=== PATIENT | female | born 1985 | race Hispanic/Latino ===

== ENCOUNTER 2016-04-03 22:12 | Emergency (ER) | payer MEDICAID ==
[~2016-04-03] VITALS: Ht 157.5 cm; Wt 68.2 kg
[2016-04-03 22:24] VITALS: BP 137/90; PULSE 92; RESP 16; O2SAT 100
--- NOTE | 2016-04-03 22:47 | ED.REPORT ---
HPI-General Illness Date of Service Apr 03, 2016 ED Provider: Dawson Barrios MD Pt is a 30 year old female with a history of substance abuse who presents to the ED with a desire to obtain a prescription for Suboxone. She reports that she has never been on a sobering program before, and has only ever Suboxone that she has purchased on her own on the street. Pt reports that she last used IV heroin this morning. She denies any abscesses, or any other complaints. Nursing Notes Stated Complaint: SUBSTANCE ABUSE Chief Complaint: Substance Abuse Nursing Notes Reviewed: Yes Allergies: Coded Allergies: No Known Allergies (Unverified , 04/03/16) Scheduled Buprenorphine HCl/Naloxone HCl (Suboxone 8 mg-2 mg Sl Film) 1 Each Film 1.5 EACH SL DAILY General Time Seen by MD: 22:42 Chief Complaint Other (Rx request) Hx Obtained From: Patient Arrived By: Walk-in Sudden in Onset?: No Severity: Current: No pain currently Severity: Maximum: No pain Similar Sx Previous: Yes Past Medical History Past Medical History IV substance abuse Smoking History Unknown if Ever Smoker Social History Drug Use: IV drugs Ambulatory Status Independent Review of Systems Full Review of Systems Constitutional: Denies: Chills, Fever, Malaise, Weakness - generalized Respiratory: Denies: Non-productive cough, Shortness of breath, Wheezing Cardiovascular: Denies: Chest pain, Syncope GI: Denies: Abdominal pain, Constipation, Diarrhea, Nausea, Vomiting Female: Denies: Dysuria, Flank pain Musculoskeletal: Denies: Back pain, Neck pain Skin: Denies Diaphoresis Neurologic: Denies: Change LOC, Headache, Syncope Complete sys rev & neg: except as marked. Physical Exam Vital Signs Vital Signs Date Time Temp Pulse Resp B/P Pulse Ox O2 Delivery O2 Flow Rate FiO2 04/03/16 22:24 36.2 92 16 137/90 100 Room Air Initial VS: Reviewed, Vital signs abnormal General/Constitutional: Well-developed, Well-nourished Head / Eyes: Atraumatic, Normocephalic, PERRL ENT: Mucous membranes moist, Conjunctiva normal, No scleral icterus Neck: Supple, Non-tender, Full range of motion Respiratory: Breath sounds normal, Clear to auscultation, No respiratory distress Skin: Warm, Dry, No cyanosis Neurologic: Alert, Oriented, Nonfocal Re-Eval/Medical Decision Med Decision/Clinical Course 30-year-old female with opioid dependence (heroin). She desires detox and Suboxone maintenance. She was given a 5 day prescription of Suboxone with instructions for expedited follow-up with me at [facility]. Source of Hx: Old records Time of Eval: 00:20 Re-Evaluation/Progress Note: Pt is rechecked and informed of her diagnosis and the plan to discharge her at this time. She understands and agrees, all questions are addressed. Counseled Regarding: Diagnosis, Need for follow-up, When/why to return to ED Discharge & Departure Primary Impression: Opioid dependence Substance use status: uncomplicated Qualified Code: F11.20 - Opioid dependence, uncomplicated Disposition: Home Discharge Condition All VS Reviewed: Yes Condition: Stable Patient Instructions: Buprenorphine/Naloxone (By mouth) Additional Instructions: Start Suboxone in the morning 24 hours after your last heroin use. Suboxone 8/ 2 film, 1-1/2 sublingual daily, #8 prescription written. Apply the mupirocin ( Bactroban) twice daily to the sores. Do not use meth or heroin. Call Wednesday to schedule an appointment to see me at [facility] on Wednesday or Wednesday. Referrals: BRENDA Laureano Attestation Portions of this note were transcribed by Blanche Ayers. I, Dr. Barrios personally performed the history, physical exam and medical decision-making; I reviewed and confirmed the accuracy of the information in the transcribed note. Signed by: Sridevi Carrero, 04/03/2016 [id number] copies to: Dawson Martin MD Apr 03, 2016 22:47 BOBBY AYERS Apr 03, 2016 23:36
[2016-04-03] MEDS ORDERED: Mupirocin 2% 22 Gm Ointment TOPICAL ONE (23:50)
[2016-04-03] MEDS ORDERED: BUPR1FIL3 SL (23:59)
== END 2016-04-04 00:07 | disposition home or self-care (01) ==
LOC: SED 22:12
DX: F11.20 Opioid dependence, uncomplicated (principal)

== ENCOUNTER 2016-05-29 23:09 | Emergency (ER) | payer MEDICAID ==
[~2016-05-29 23:09] MED LIST: BUPR1FIL3 SL
[2016-05-30] MEDS ORDERED: BUPR1FIL3 SL (21:17)
== END 2016-05-29 23:22 | disposition left against medical advice (07) ==
LOC: SED 23:09
DX: F19.10 Other psychoactive substance abuse, uncomplicated (principal); Z53.21 Procedure and treatment not carried out due to patient leaving prior to being seen by health care provider

== ENCOUNTER 2016-05-30 19:54 | Emergency (ER) | payer MEDICAID ==
[~2016-05-30] VITALS: Ht 157.5 cm; Wt 63.6 kg
[2016-05-30 20:00] VITALS: BP 132/87; PULSE 88; RESP 16; O2SAT 100
--- NOTE | 2016-05-30 20:33 | ED.REPORT ---
HPI-General Illness Date of Service May 30, 2016 ED Provider: Dawson Barrios MD A 30 year old female with a history of IV heroin abuse and methamphetamine presents to the ED requesting Suboxone treatment. The pt last used at 00:00 last night. She reports that there are no openings at [facility] this week but is interested in detox. The pt was in treatment three months ago and has been trying to get clean for some time. Nursing Notes Stated Complaint: OPIATE WITHDRAWAL Chief Complaint: Substance Abuse Nursing Notes Reviewed: Yes Allergies: Coded Allergies: No Known Allergies (Unverified , 05/30/16) Scheduled Buprenorphine HCl/Naloxone HCl (Suboxone 8 mg-2 mg Sl Film) 1 Each Film 1 EACH SL BID General Time Seen by MD: 20:02 Chief Complaint Other (Suboxone request) Hx Obtained From: Patient Arrived By: Walk-in Sudden in Onset?: No Recent Healthcare: No recent hospitalization, Recent doctor visit Similar Sx Previous: Yes Past Medical History Past Medical History IV substance abuse Past Surgical History none reported Smoking History Unknown if Ever Smoker Social History Drug Use: IV drugs, Meth Ambulatory Status Independent Review of Systems Suboxone request Full Review of Systems Respiratory: Denies: Non-productive cough, Shortness of breath Cardiovascular: Denies: Chest pain GI: Denies: Abdominal pain Musculoskeletal: Denies: Back pain, Neck pain Skin: Denies Rash Complete sys rev & neg: except as marked. Physical Exam Vital Signs Vital Signs Date Time Temp Pulse Resp B/P Pulse Ox O2 Delivery O2 Flow Rate FiO2 05/30/16 20:00 36.6 88 16 132/87 100 Room Air Initial VS: Reviewed, Vital signs normal General/Constitutional: Awake, Alert Head / Eyes: Atraumatic, Normocephalic, PERRL, EOMI ENT: Atraumatic, Airway patent, Mucous membranes moist Neck: Atraumatic, Supple, Full range of motion Respiratory / Chest: Atraumatic, Breath sounds NL, Breath sounds = bilat, No respiratory distress Cardiovascular: Heart rate NL, Regular rhythm, Heart sounds NL Abdomen: Atraumatic, Soft, Non-tender Back: Atraumatic, Full range of motion Upper Extremities Upper Extremity / MS: Atraumatic, Full range of motion Lower Extremity / Pelvis / MS: Atraumatic, Full range of motion Skin: Color NL, No rash, Warm, Dry tracks, no abscess Neurologic: Oriented X3, Speech NL, No motor deficits, No sensory deficits Psychiatric: Affect NL, Mood NL Re-Eval/Medical Decision Med Decision/Clinical Course 30-year-old female with a history of IV heroin use. She has been abstinent for around 20 hours. She was given the priority access appointment line for [facility] and a prescription for Suboxone 8/2 film or tablets, one sublingual twice a day for 5 days, #10 prescribed. Source of Hx: Old records Time of Eval: 21:00 Patient Status: Condition improved Re-Evaluation/Progress Note: Pt rechecked, who is comfortable. The diagnosis and plan for discharge are discussed. The pt understands and agrees with the plan. All questions are addressed at this time. Counseled Regarding: Diagnosis, Need for follow-up, When/why to return to ED Discharge & Departure Primary Impression: Opioid dependence with withdrawal Disposition: Home Discharge Condition All VS Reviewed: Yes Condition: Stable Patient Instructions: Buprenorphine (Injection) Additional Instructions: After 24 hours of abstinence from all opiates, start Suboxone 8/2, one sublingual twice daily, #10. Call the priority access line at [phone] for an appointment this week. Referrals: [facility] Sridevi Attestation Portions of this note were transcribed by Juana Cleveland. I, Dr. Barrios personally performed the history, physical exam and medical decision-making; I reviewed and confirmed the accuracy of the information in the transcribed note. Signed by: Sridevi Mccarty, 05/30/16 and 2121. copies to: [facility] ; [facility] Dawson Barrios MD May 30, 2016 20:33 JUANA CLEVELAND May 30, 2016 20:41
[2016-05-30] MEDS ORDERED: BUPR1FIL3 SL (21:17)
== END 2016-05-30 21:26 | disposition home or self-care (01) ==
LOC: SED 19:54
DX: F11.23 Opioid dependence with withdrawal (principal)